=== PATIENT | female | born 1955 | race Caucasian/White ===

== ENCOUNTER 2016-08-06 08:37 | Emergency (ER) | payer SELFPAY ==
[~2016-08-06] VITALS: Ht 165.1 cm; Wt 79.4 kg
[~2016-08-06 08:37] MED LIST: BACL-141; BENA40TA3; DES150; LORA0.5T2; METF500T3; PRAV10TA35; VENL150T3
[2016-08-06 09:07] VITALS: BP 150/78
== END 2016-08-06 10:18 | disposition home or self-care (01) ==
LOC: ER 09:04
DX: G47.00 Insomnia, unspecified (principal); E11.9 Type 2 diabetes mellitus without complications; I10 Essential (primary) hypertension
CPT/HCPCS: 99281; Z7610

== ENCOUNTER 2016-11-14 20:26 | Emergency (ER) | payer SELFPAY ==
[~2016-11-14] VITALS: Ht 152.4 cm; Wt 73.0 kg
[2016-11-14 22:56] LABS: BASOPHILS % 0.5 % (0.0-2.0); EOSINOPHILS % 0.2 % (0.0-5.0); HEMATOCRIT. 36.6 % (36.0-48.0); HEMOGLOBIN. 12.4 g/dL (12.0-16.0); LYMPHOCYTES % 11.9 % (20.0-50.0); MEAN CORPUSCULAR VOLUME 82.6 fL (81.0-99.0); MEAN PLATELET VOLUME 9.3 fl (7.4-10.4); MONOCYTES % 6.1 % (2.0-8.0); NEUTROPHILS % 81.3 % (40.0-76.0); PLATELET 158 x1000/uL (130-400); RED BLOOD CELL COUNT 4.44 mill/uL (4.2-5.4); RED CELL DISTRIBUTION WIDTH 14.6 % (11.6-14.6)
[2016-11-14 22:57] LABS: CHLORIDE 106 mEq/L (98-107)
[2016-11-14 23:01] LABS: PROTHROMBIN TIME 10.7 sec
[2016-11-14 23:03] LABS: CARBON DIOXIDE 28 mEq/L (21-32); ETHANOL BLOOD < 10 mg/dL
[2016-11-15] MEDS ORDERED: IBUPROFEN 600MG TABLET PO ONE (01:45)
[2016-11-15 03:52] VITALS: BP 161/89
== END 2016-11-15 03:52 | disposition home or self-care (01) ==
LOC: ER 21:19
DX: S40.212A Abrasion of left shoulder, initial encounter (principal); S40.211A Abrasion of right shoulder, initial encounter; S00.01XA Abrasion of scalp, initial encounter; R51 Headache; M25.521 Pain in right elbow; M25.522 Pain in left elbow; M79.601 Pain in right arm; M79.602 Pain in left arm; I10 Essential (primary) hypertension; E11.9 Type 2 diabetes mellitus without complications; Y04.0XXA Assault by unarmed brawl or fight, initial encounter; Y07.01 Husband, perpetrator of maltreatment and neglect; Y93.89 Activity, other specified; Y99.8 Other external cause status; Y92.89 Other specified places as the place of occurrence of the external cause
CPT/HCPCS: 36415; 70450; 70486; 71010; 73030; 73060; 73080; 80053; 80307; 80329; 85025; 85610; 93005; 99285; G0482; X7700; Z7610; 81003

== ENCOUNTER 2018-02-20 18:30 | Emergency (ER) | payer SELFPAY ==
[~2018-02-20] VITALS: Ht 165.1 cm; Wt 74.0 kg
[~2018-02-20 18:30] MED LIST changes: -BENA40TA3; +BENA40TA9
[2018-02-20] MEDS ORDERED: NAPROXEN 375MG TABLET PO ONE (20:00)
[2018-02-20 21:51] VITALS: BP 142/80
== END 2018-02-20 21:56 | disposition home or self-care (01) ==
LOC: ER 18:30
DX: M79.674 Pain in right toe(s) (principal); I10 Essential (primary) hypertension; E11.9 Type 2 diabetes mellitus without complications; M19.90 Unspecified osteoarthritis, unspecified site; Z79.84 Long term (current) use of oral hypoglycemic drugs
CPT/HCPCS: 73630; 82962; 99284; Z7610

== ENCOUNTER 2018-05-06 09:37 | Emergency (ER) | payer SELFPAY ==
[~2018-05-06] VITALS: Ht 165.1 cm; Wt 75.0 kg
[2018-05-06] MEDS ORDERED: SODIUM CHLORIDE 0.9% 1,000 ML IV ONE (10:35)
[2018-05-06 11:26] LABS: BASOPHILS % 0.4 % (0.0-2.0); EOSINOPHILS % 0.5 % (0.0-5.0); HEMATOCRIT. 35.6 % (36.0-48.0); HEMOGLOBIN. 11.9 g/dL (12.0-16.0); LYMPHOCYTES % 21.6 % (20.0-50.0); MEAN CORPUSCULAR HEMOGLOBIN 28.3 pg (28.0-32.0); MEAN CORPUSCULAR VOLUME 84.5 fL (81.0-99.0); MEAN PLATELET VOLUME 9.2 fl (7.4-10.4); MONOCYTES % 8.1 % (2.0-8.0); NEUTROPHILS % 69.4 % (40.0-76.0); PLATELET 154 x1000/uL (130-400); RED BLOOD CELL COUNT 4.22 mill/uL (4.2-5.4); RED CELL DISTRIBUTION WIDTH 14.5 % (11.6-14.6)
[2018-05-06 11:28] LABS: CHLORIDE 109 mEq/L (98-107)
[2018-05-06 11:39] LABS: CLARITY URINE CLEAR (CLEAR); COLOR URINE YELLOW (YELLOW); KETONES URINE TRACE (NEGATIVE); LEUKOCYTE ESTERASE URINE NEGATIVE (NEGATIVE); NITRITE URINE NEGATIVE (NEGATIVE); OCCULT BLOOD URINE TRACE (NEGATIVE); PROTEIN URINE NEGATIVE (NEGATIVE); SPECIFIC GRAVITY URINE 1.026 (1.005-1.030); UROBILINOGEN URINE 0.2 E.U./dL (0.2-1.0)
[2018-05-06 14:29] VITALS: BP 124/71
== END 2018-05-06 14:31 | disposition home or self-care (01) ==
LOC: ER 09:37
DX: K52.9 Noninfective gastroenteritis and colitis, unspecified (principal); E11.9 Type 2 diabetes mellitus without complications; I10 Essential (primary) hypertension; M19.90 Unspecified osteoarthritis, unspecified site; Z79.899 Other long term (current) drug therapy
CPT/HCPCS: 36415; 80053; 81003; 85025; 87015; 87045; 87427; 87449; 96360; 96361; 99283; J7030

== ENCOUNTER 2018-11-09 14:44 | Emergency (ER) | payer SELFPAY ==
[~2018-11-09] VITALS: Ht 165.1 cm; Wt 76.0 kg
[2018-11-09] MEDS ORDERED: KETOROLAC 30MG/ML VIAL IM STA (18:47)
[2018-11-09 18:59] VITALS: BP 125/81
[2018-11-09 19:25] LABS: CLARITY URINE CLEAR (CLEAR); COLOR URINE YELLOW (YELLOW); KETONES URINE NEGATIVE (NEGATIVE); LEUKOCYTE ESTERASE URINE NEGATIVE (NEGATIVE); NITRITE URINE NEGATIVE (NEGATIVE); OCCULT BLOOD URINE NEGATIVE (NEGATIVE); PROTEIN URINE NEGATIVE (NEGATIVE); SPECIFIC GRAVITY URINE 1.017 (1.005-1.030)
[2018-11-09 20:26] LABS: BASOPHILS % 0.6 % (0.0-2.0); EOSINOPHILS % 0.8 % (0.0-5.0); HEMATOCRIT. 38.8 % (36.0-48.0); HEMOGLOBIN. 13.2 g/dL (12.0-16.0); LYMPHOCYTES % 25.3 % (20.0-50.0); MEAN CORPUSCULAR HEMOGLOBIN 28.9 pg (28.0-32.0); MEAN CORPUSCULAR VOLUME 84.6 fL (81.0-99.0); MEAN PLATELET VOLUME 8.8 fl (7.4-10.4); MONOCYTES % 7.8 % (2.0-8.0); NEUTROPHILS % 65.5 % (40.0-76.0); PLATELET 175 x1000/uL (130-400); RED BLOOD CELL COUNT 4.58 mill/uL (4.2-5.4); RED CELL DISTRIBUTION WIDTH 14.3 % (11.6-14.6)
[2018-11-09 20:27] LABS: CHLORIDE 105 mEq/L (98-107)
== END 2018-11-09 20:57 | disposition home or self-care (01) ==
LOC: ER 14:44
DX: R10.31 Right lower quadrant pain (principal); R10.32 Left lower quadrant pain; M19.90 Unspecified osteoarthritis, unspecified site; I10 Essential (primary) hypertension; E11.9 Type 2 diabetes mellitus without complications; Z79.84 Long term (current) use of oral hypoglycemic drugs
CPT/HCPCS: 36415; 76770; 80053; 81003; 85025; 96372; 99284; J1885